=== PATIENT | female | born 1985 | race Two or more races ===

== ENCOUNTER 2016-09-07 19:21 | Emergency (ER) | payer SELFPAY ==
--- NOTE | 2016-09-07 20:58 | EDPHY ---
H & P Smoking Status: Never smoked Time Seen by Provider: 09/07/16 20:22 HPI/ROS: CHIEF COMPLAINT: dog bite left thigh HISTORY OF PRESENT ILLNESS: 30-year-old female presents emergency department with a dog bite to her left upper leg. Patient stepped in the middle of the dog a lunging at her dog. Her dog bit her leg. Patient's tetanus is up-to- date. She reports her dog's rabies vaccine is not up-to-date. Has not had in 4 years. Patient reports she has had her dog with her every day since he was 6- week-old. No recent change in his behavior, patient is not concerned about rabies. She is ambulatory without difficulty. Patient is 15 weeks . ( Clary Eaton) Physical Exam: GEN: Awake, alert, oriented, no acute distress RESP: nl resp effort MSK: Full flexion extension of left knee and left ankle without difficulty SKIN: 2, 0.5 cm puncture wounds to left lateral thigh (Clary Eaton) Constitutional: Initial Vital Signs Temperature (C) 36.8 C 09/07/16 19:39 Heart Rate 74 09/07/16 19:39 Respiratory Rate 12 09/07/16 19:39 Blood Pressure 117/83 H 09/07/16 19:39 O2 Sat (%) 98 09/07/16 19:39 O2 Delivery Mode Room Air Allergies/Adverse Reactions: No Known Allergies Allergy (Unverified 09/07/16 19:38) Home Medications: Medication Instructions Recorded Amoxicillin/Clavulanate Pot 875 mg PO BID #10 tab 09/07/16 [Augmentin 875Mg] 09/07/16 MDM/Departure - MDM Diagnostics: Left femur x-ray independently reviewed by me- No foreign body (Clary Eaton) Medications Given: Discontinued Medications Amoxicillin/Clavulanate Potassium (Augmentin 875mg) 875 mg PO EDNOW ONE PRN Reason: Protocol Stop: 09/07/16 21:00 Last Admin: 09/07/16 21:18 Dose: 875 mg ED Course/Re-evaluation: 30-year-old female who is 15 weeks presents with a dog bite to her left thigh that occurred from her dog. Rabies vaccination is not up-to-date though the patient states she has had this dog with her since it was 6-week-old , last rabies vaccine was about 4 years ago. She reports her dogs acting appropriate, no change in behavior. Patient has not received a rabies vaccine. I discussed the options of vaccinating her, she declines. Puncture wounds were anesthetized with 1% lidocaine with epinephrine, they were irrigated well by the emergency department weld technician. Patient is placed on Augmentin for 5 days. I have recommended warm compresses 5 times a day. She is given strict return precautions for any signs of infection. (Clary Eaton) - Depart Disposition: Home, Routine, Self-Care Clinical Impression: Dog bite of left thigh Qualifiers: Encounter type: initial encounter Qualified Code(s): S71.152A - Open bite, left thigh, initial encounter; W54.0XXA - Bitten by dog, initial encounter Condition: Good Instructions: Animal Bite (ED) Additional Instructions: Warm wet compresses to the dog bite 5 times a day for 10 minutes, cover with a Band-Aid, do not use antibiotic ointment. Take 875 mg of Augmentin twice daily for 5 days. Take 650 mg of Tylenol every 8 hours as needed for pain. Return to the emergency department for any signs of infection, redness, increased pain , drainage, any other questions or concerns. Prescriptions: Amoxicillin/Clavulanate Pot [Augmentin 875Mg] 875 mg PO BID #10 tab Referrals: Kassie Edwards MD [Medical Doctor] - As per Instructions (Primary care doctor on-call)
[2016-09-07] MEDS ORDERED: AMOXICILLIN/CLAVULANATE POT 875/125 MG TAB PO ONE (20:59)
[2016-09-07 21:24] VITALS: BP 114/74; PULSE 66; RESP 16; TEMP 97.9; O2SAT 96
== END 2016-09-07 21:20 | disposition home or self-care (01) ==
DX: S71.152A Open bite, left thigh, initial encounter (principal); W54.0XXA Bitten by dog, initial encounter